=== PATIENT | male | born 1950 | race Caucasian/White ===

== ENCOUNTER 2020-02-06 17:41 | Emergency (ER) | payer MEDICARE, SELFPAY ==
--- NOTE | ~2020-02-06 | XR_ITS ---
XR chest 2V 02/06/2020 18:45 Indication: Chest pain Procedure: 2 view chest Comparison: 04/06/2018 Findings: Heart size is upper normal. Prominent left cardiophrenic angle fat pad. No focal air space disease, pulmonary edema, pleural effusion or suspected pneumothorax. Impression: 1: No acute cardiopulmonary disease. Reviewed, dictated and finalized at location A. YARD WORKER Impression: 1: No acute cardiopulmonary disease.
--- NOTE | ~2020-02-06 | CT_ITS ---
EXAMINATION: CTA chest PE protocol DATE: 02/06/2020 19:31 SPECIAL NEEDS BUS DRIVER INDICATION: Elevated d-dimer. Chest pain. TECHNIQUE: Computed tomographic angiography (CTA) of the chest was performed with 100 mL Omnipaque-35 0 intravenous contrast. The dose-length product was 657.55 mGy-cm. Maximum intensity projection 3D-re constructions of the aorta and other arteries were constructed by the technologist on a separate work station. Automated exposure control and iterative reconstruction technique were employed. COMPARISON: Chest x-ray dated 02/06/2020. FINDINGS: No significant pleural or pericardial effusion. Heart size is normal. Severely atrophic lef t kidney. Study is technically adequate. There are filling defects in right upper lobe segmental pulm onary arteries, consistent with pulmonary embolism. Small thrombus burden. No thoracic lymphadenopath y. No significant pleural or pericardial effusion. Fatty infiltration of the liver. There are gallsto cecille. No endobronchial lesions. Bibasilar atelectasis. IMPRESSION: 1. Filling defects right upper lobe segmental pulmonary arteries, consistent with pulmonary embolism, small thrombus burden. 2: Cholelithiasis. 3: Bibasilar atelectasis. Reviewed, dictated and finalized at location A. IAL NEEDS BUS DRIVER IMPRESSION: 1. Filling defects right upper lobe segmental pulmonary arteries, consistent wi th pulmonary embolism, small thrombus burden. 2: Cholelithiasis. 3: Bibasilar atelectasis.
[2020-02-06 18:00] VITALS: BP 147/87; PULSE 69; RESP 16; TEMP 37.1; O2SAT 97
--- NOTE | 2020-02-06 18:06 | ECG_ITS ---
Measurements Intervals [place] Rate: 67 P: 42 MS: 186 QRS: -42 QRSD: 111 T: 18 QT: 392 QTc: 415 Interpretive Statements SINUS RHYTHM LEFT AXIS DEVIATION INTRAVENTRICULAR CONDUCTION DELAY POOR R WAVE PROGRESSION, ANTERIOR LEADS BORDERLINE T WAVE ABNORMALITY- INFERIOR LEADS BASELINE ARTIFACT- I, II, AVR, AVL, V4-V6 BORDERLINE ECG Electronically Signed On 02-07-2020 14:20:56 INSTRUCTOR ADJUNCT SURGICAL TECHNICIAN by Harlan FATIMA
[2020-02-06 18:31] LABS: Basophils Absolute Auto 0.03 K/mm3 (0.00-0.10); Basophils Percent Auto 0.4 % (0.0-1.0); Eosinophils Absolute Auto 0.12 K/mm3 (0.02-0.50); Eosinophils Percent Auto 1.4 % (1.0-6.0); Hematocrit 42.3 % (37.0-46.0); Hemoglobin 14.2 g/dL (12.4-15.3); Immature Granulocyte Absolute 0.03 K/mm3 (0.00-0.00); Immature Granulocyte Percent A 0.4 % (0.0-0.0); Lymphocytes Absolute Auto 1.86 K/mm3 (1.10-4.50); Lymphocytes Percent Auto 21.9 % (18.0-42.0); Mean Corpuscular HGB Conc 33.6 g/dL (32.0-36.0); Mean Corpuscular Hemoglobin 30.9 pg (27.0-31.0); Mean Corpuscular Volume 92.2 fL (78.0-102.0); Mean Platelet Volume 9.6 fl (8.7-11.0); Monocytes Absolute Auto 0.89 K/mm3 (0.10-0.90); Monocytes Percent Auto 10.5 % (2.0-11.0); Neutrophils Absolute Auto 5.6 K/mm3 (1.7-7.2); Neutrophils Percent Auto 65.4 % (50.0-70.0); Platelet Count Result 207 K/mm3 (150-420); Red Blood Count 4.59 M/mm3 (4.70-6.10); Red Cell Distribution Width 12.2 % (11.6-14.4); White Blood Count 8.5 K/mm3 (4.8-10.8)
[2020-02-06 18:49] LABS: Alanine Aminotransferase 59 U/L (16-63); Albumin Level 3.8 g/dL (3.4-5.0); Alkaline Phosphatase 53 U/L (46-116); Anion Gap 6 mmol/L (8-16); Aspartate Amino Transferase 23 U/L (15-37); Bilirubin,Total 0.3 mg/dL (0.00-1.00); Blood Urea Nitrogen 32 mg/dL (7-18); Calcium 9.3 mg/dL (8.5-10.1); Carbon Dioxide 27 mmol/L (21-32); Chloride 100 mmol/L (98-108); Estimated Glomerular Filt Rate 38; Glucose 130 mg/dL (70-99); Osmolality Calculated 284 mOsm/kg (285-295); Potassium 3.7 mmol/L (3.5-5.1); Sodium 133 mmol/L (136-145); Total Protein 7.3 g/dL (6.4-8.2); Troponin I 8.7 ng/L (0.00-60.4)
[2020-02-06 18:52] LABS: BNP 5.6 pg/mL (0-100)
[2020-02-06 18:53] LABS: D Dimer 2.07 mg/L (0.19-0.50)
[2020-02-06 19:04] LABS: SARS-CoV-2 Ag Negative (Negative)
--- NOTE | 2020-02-06 21:02 | ED.CHESTPAIN ---
HPI - Chest Pain General Source: patient and family Mode of arrival: ambulatory Limitations: no limitations History of Present Illness HPI narrative: Patient complains of chest tightness, mild chest pain for the past 24 hours, ongoing, not known to be associated with any known causes. MD complaint: chest heaviness Timing of current episode: constant and still present Pain location: parasternal Pain radiation: none Severity: mild Quality: tightness and heaviness Relieving factors: nothing Exacerbating factors: nothing Risk Factors Coronary artery disease risk factors: none (age) Thoracic aortic dissection risk factors: none Related Data Home Medications Medication Instructions Recorded Confirmed lancets 33 gauge #100 each 03/07/19 02/06/20 Allergies Allergy/AdvReac Type Severity Reaction Status Date / Time No Known Allergies Allergy Unverified 04/06/18 06:48 Review of Systems Eyes: Eyes: Reports no additional eye complaints ENT: Reports system reviewed and no additional complaints, except as documented Cardiovascular: Cardiovascular: Reports no additional cardiovascular complaints Respiratory: Respiratory: Reports no additional respiratory complaints Gastrointestinal: Gastrointestinal: Reports no additional gastrointestinal complaints Genitourinary: Genitourinary: Reports no additional male genitourinary complaints Musculoskeletal: Musculoskeletal: Reports no additional musculoskeletal complaints Integumentary/Breasts: Skin/Breast: Reports system reviewed and no additional complaints, except as docu Neurologic: Reports system reviewed and no additional complaints, except as documented Psychiatric: Psychiatric: Reports no additional psychiatric complaints Endocrine: Endocrine: Reports no additional endocrine complaints Hematologic/Lymphatic: Hematologic/Lymphatic: Reports no additional hematologic/lymphatic complaints Allergic/Immunologic: Allergic/Immunologic: Reports no additional allergic/immunologic complaints REPLACED BY [facility] Past Medical History Medical History Renal calculi Surgical History Surgical History No significant past surgical history Family History Family History Father Patient's father is in good health Grandparent Family history of malignant neoplasm, Onset Age: 55 Family history of coronary artery disease, Onset Age: 80 Family history of malignant neoplasm of kidney, Onset Age: 80 Mother Family history of malignant neoplasm of kidney, Onset Age: 60 Social History Social History Smoking status: Never smoker Second hand tobacco smoke exposure: No Alcohol intake: current Exam Const: General: cooperative and healthy appearing Nutritional Appearance: average body habitus Orientation/consciousness: oriented to person, oriented to place and oriented to time Limitations: no limitations HENMT: Head: normal to inspection and normocephalic Ears: hearing grossly normal bilaterally and TM's normal bilaterally General nose exam: Normal external nose present Face and sinus: normal facial exam Mouth: Yes Normal oral and palatal mucosa present and Yes oropharynx normal Throat: posterior oropharynx normal Eyes: General: appearance normal, both eyes and all related structures Alignment and Position: alignment normal Eyelids: eyelids normal Conjunctivae: conjunctivae normal Sclera: sclerae normal Neck: Neck: normal visual inspection Lymphatic: no lymphadenopathy noted Chest: Chest palpation & inspection: normal inspection of the chest Resp: Effort & Inspection: normal respiratory effort and able to speak in complete sentences Auscultation: clear to auscultation bilaterally Cardio: Rate: regular rate Rhythm: regular rhythm GI: Inspection: normal t
[2020-02-06] MEDS: SODIUM CHLORIDE 0.9% IV 1,000 ML 999 ML (21:10)
[2020-02-06] MEDS: APIXABAN 2.5 MG TABLET 10 MG PO (21:21)
[2020-02-06] MEDS: HYDROcodone/acetaminophen (*CRX) 5-325 MG TABLET 1 TAB PO (21:22)
[2020-02-06] MEDS: ENOXAPARIN 100 MG/ML SYRINGE SUB-Q (21:22)
[2020-02-06 21:55] VITALS: BP 150/73
== END 2020-02-06 21:55 | disposition home or self-care (01) ==
PROVIDERS: Emergency Provider Emergency Medicine; PCP Internal Medicine
DX: I26.99 Other pulmonary embolism without acute cor pulmonale (principal)
CPT/HCPCS: 36415; 71046; 71275; 80053; 83880; 84484; 85025; 85380; 87426; 93005; 96372; 99283; 99284; A9270; J1650; J7030; Q9965; Q9967

== ENCOUNTER 2020-02-09 14:02 | Outpatient (CLI) | payer MEDICARE, SELFPAY ==
--- NOTE | ~2020-02-09 | US_ITS ---
EXAMINATION: US venous doppler LE EXAM DATE: 02/09/2020 14:38 INDICATION: Pulmonary embolism. On blood thinners. TECHNIQUE: Multiple grayscale, color flow and Doppler images of the lower extremity deep venous syste ms bilaterally were obtained and reviewed. There is no prior study for comparison. FINDINGS: Right side: The right common femoral, femoral and profunda veins demonstrate normal color flow, respi ratory variation, augmentation and compressibility. Compressibility, color flow confirmed within the right popliteal, posterior tibial, peroneal, and greater saphenous veins. Small sized Hendricks's cyst at 5.3 x 1.3 x 2.5 cm. Left side: The left common femoral, femoral and profunda veins demonstrate normal color flow, respira tory variation, augmentation and compressibility. Compressibility, color flow confirmed within the l eft popliteal, posterior tibial, peroneal, and greater saphenous veins. Small to moderate-sized Bake r's cyst at 4.9 x 1.5 x 3.6 cm. IMPRESSION: 1. No lower extremity deep venous thrombosis bilaterally. 2. Bilateral Hendricks's cysts. Reviewed, dictated and finalized at location B. ERY/ORDNANCE OFFICER
== END 2020-02-09 14:03 | disposition home or self-care (01) ==
PROVIDERS: PCP Internal Medicine; Visit Provider Emergency Medicine
DX: I26.99 Other pulmonary embolism without acute cor pulmonale (principal)
CPT/HCPCS: 93970

== ENCOUNTER → 2020-03-20 01:13 | Outpatient (CLI) | payer MEDICARE, SELFPAY ==
[2020-03-20 20:39] LABS: SARS-CoV-2 RNA PCR Negative
== END ==
PROVIDERS: PCP Internal Medicine; Visit Provider Internal Medicine Gastroenterology
DX: Z01.812 Encounter for preprocedural laboratory examination (principal); Z20.822 Contact with and (suspected) exposure to COVID-19
CPT/HCPCS: C9803; U0003; U0005

== ENCOUNTER 2020-03-23 02:09 | Day surgery (SDC) | payer MEDICARE, SELFPAY ==
[2020-03-10 08:22] VITALS: BMI 32.5
--- NOTE | 2020-03-11 13:30 | SUR.PREOP ---
Fax sent to Dr Arevalo regarding Eliquis. Orders for Lovenox injection transition while off Eliquis okay per Dr Arevalo. Verbal orders from Dr Ling for Lovenox placed in ambulatory orders.
[2020-03-23 10:43] VITALS: BP 135/73; PULSE 66; RESP 18; TEMP 36.2; O2SAT 98
[2020-03-23] MEDS: LACTATED RINGERS 1,000 ML 150 ML IV CONT (10:47)
[2020-03-23 10:51] LABS: Glucose Point of Care 180 (65-105)
--- NOTE | 2020-03-23 10:54 | WPDANESEPPF ---
Anes - Initial Pre Proc Eval Procedure: Operation Date: 03/23/20 11:30 Proposed Procedures p Screening Colonoscopy - Inder Roberson MD Date/Time: 03/23/20 10:54 Surgeon: Inder Roberson MD Pre Op Diagnosis: Personal Hx of Colon Polyps Patient Data Age: 69 Gender: M Height: 5 ft 11 in Weight: 103.9 kg Last Vital Signs Temp 36.2 C L 03/23/20 10:43 Pulse 66 03/23/20 10:43 Resp 18 03/23/20 10:43 BP 135/73 03/23/20 10:43 Pulse Ox 98 03/23/20 10:43 Allergies Allergy/AdvReac Type Severity Reaction Status Date / Time No Known Allergies Allergy Unverified 03/23/20 10:30 Home Medications Medication Instructions Recorded Confirmed Type lancets 33 gauge #100 each 03/07/19 02/16/20 History fluoxetine 10 mg capsule 10 mg PO DAILY #90 cap 05/09/19 03/23/20 Rx metformin 500 mg tablet 500 mg PO BID #180 tablet 05/09/19 03/23/20 Rx blood sugar diagnostic #100 each 07/15/19 02/16/20 Rx benazepril 20 mg tablet See Rx Instructions .ROUTE 01/12/20 03/23/20 Rx .COMPLEX #90 tablet hydrochlorothiazide 25 mg tablet See Rx Instructions .ROUTE 02/25/20 03/23/20 Rx .COMPLEX #90 tablet pravastatin 10 mg tablet See Rx Instructions .ROUTE 02/26/20 03/23/20 Rx .COMPLEX #90 tablet apixaban 5 mg tablet 5 mg PO BID #180 tablet 03/01/20 03/23/20 Rx amlodipine 20 mg PO DAILY 03/10/20 03/23/20 History enoxaparin [Lovenox] 100 mg SUBCUT Q12H #4 ml 03/11/20 Rx levothyroxine 50 mcg tablet See Rx Instructions .ROUTE 03/15/20 03/23/20 Rx .COMPLEX #90 tablet Laboratory Tests 03/23/20 10:45 POC Capillary Glucose 180 mg/dl H mg/dl (65-105) Patient hx anesthesia problems: none Family hx anesthesia problems: none PMFSH Past Medical History Medical History Renal calculi Surgical History Surgical History No significant past surgical history Family History Family History Father Patient's father is in good health Grandparent Family history of malignant neoplasm, Onset Age: 55 Family history of coronary artery disease, Onset Age: 80 Family history of malignant neoplasm of kidney, Onset Age: 80 Mother Family history of malignant neoplasm of kidney, Onset Age: 60 Social History Social History Smoking packs per day: 0.5 Smoking cigarettes per day: 10.0 Years smoked: 20 Smoking pack-years: 10.00 Smoking status: Former smoker Tobacco type: cigarettes Second hand tobacco smoke exposure: No Alcohol intake: current Drinks per week: 6 Substance use type: does not use Living arrangements: with family Spiritual care concerns: No Anes - Eval Final PreProcedure Day of Procedure 03/23/20 10:54 Patient weight: obese Heart: regular rate and rhythm Lungs: clear to auscultation Airway: Mallampati scale class II Neurological: alert and oriented Last oral intake: >/= 8 hours ASA classification: III Emergent: no Anesthetic plan: proceed Anesthesia type and monitoring: general GIVS and standard monitoring Informed Consent: The patient's anesthetic plan and its attendant risks and benefits were discussed with the patient/family/POA. Questions were solicited and answers provided to the satisfaction of the patient/family/POA.
--- NOTE | 2020-03-23 12:13 | PM.HPGS ---
History of Present Illness History of Present Illness Consent: Risks, benefits, and alternatives have been discussed and questions answered. Patient agrees to proceed with procedure. Chief complaint: Personal Hx of Colon Polyps Narrative: Sanket Zelaya is a 69 year old male with colon polyps 6 years ago, PE on eliquis but bridge with lovenox last 2 days Review of Systems Constitutional: Constitutional: Denies headache(s) and Denies weakness Eyes: Eyes: Denies blurry vision ENT: Reports Normal hearing present, Denies headache(s) and Denies neck pain Cardiovascular: Cardiovascular: Denies chest pain and Denies dyspnea Respiratory: Respiratory: Denies dyspnea Gastrointestinal: Gastrointestinal: Reports no additional gastrointestinal complaints Genitourinary: Genitourinary: Denies dysuria Musculoskeletal: Musculoskeletal: Denies neck pain Integumentary/Breasts: Skin/Breast: Denies dry skin Neurologic: Reports Normal hearing present, Denies headache(s) and Denies weakness Psychiatric: Psychiatric: Denies anxiety Endocrine: Endocrine: Denies change in body appearance Hematologic/Lymphatic: Hematologic/Lymphatic: Denies easy bleeding Allergic/Immunologic: Allergic/Immunologic: Denies urticaria PMFSH Past Medical History Medical History Renal calculi Surgical History Surgical History No significant past surgical history Family History Family History Father Patient's father is in good health Grandparent Family history of malignant neoplasm, Onset Age: 55 Family history of coronary artery disease, Onset Age: 80 Family history of malignant neoplasm of kidney, Onset Age: 80 Mother Family history of malignant neoplasm of kidney, Onset Age: 60 Social History Social History Smoking packs per day: 0.5 Smoking cigarettes per day: 10.0 Years smoked: 20 Smoking pack-years: 10.00 Smoking status: Former smoker Tobacco type: cigarettes Second hand tobacco smoke exposure: No Alcohol intake: current Drinks per week: 6 Substance use type: does not use Living arrangements: with family Spiritual care concerns: No Meds Home Medications and Allergies Home Medications Medication Instructions Recorded Confirmed Type lancets 33 gauge #100 each 03/07/19 02/16/20 History fluoxetine 10 mg capsule 10 mg PO DAILY #90 cap 05/09/19 03/23/20 Rx metformin 500 mg tablet 500 mg PO BID #180 tablet 05/09/19 03/23/20 Rx blood sugar diagnostic #100 each 07/15/19 02/16/20 Rx benazepril 20 mg tablet See Rx Instructions .ROUTE 01/12/20 03/23/20 Rx .COMPLEX #90 tablet hydrochlorothiazide 25 mg tablet See Rx Instructions .ROUTE 02/25/20 03/23/20 Rx .COMPLEX #90 tablet pravastatin 10 mg tablet See Rx Instructions .ROUTE 02/26/20 03/23/20 Rx .COMPLEX #90 tablet apixaban 5 mg tablet 5 mg PO BID #180 tablet 03/01/20 03/23/20 Rx amlodipine 20 mg PO DAILY 03/10/20 03/23/20 History enoxaparin [Lovenox] 100 mg SUBCUT Q12H #4 ml 03/11/20 Rx levothyroxine 50 mcg tablet See Rx Instructions .ROUTE 03/15/20 03/23/20 Rx .COMPLEX #90 tablet Allergies Allergy/AdvReac Type Severity Reaction Status Date / Time No Known Allergies Allergy Unverified 03/23/20 10:30 Vital Signs Vital Signs - 24 hr 03/23/20 10:43 Temperature 97.1 F L Pulse Rate 66 Respiratory Rate 18 Blood Pressure 135/73 Pulse Oximetry 98 Exam Const: General: comfortable and no acute distress HENMT: General nose exam: Normal nares present Eyes: General: appearance normal, both eyes and all related structures Neck: Neck: no JVD Resp: Auscultation: clear to auscultation bilaterally Cardio: Rate: regular rate Rhythm: regular rhythm GI: Inspection: non-distended GI Palp
[2020-03-23 12:33] VITALS: BP 97/86; PULSE 69; RESP 24; O2SAT 97
[2020-03-23 12:43] VITALS: BP 103/66; PULSE 61; RESP 20; O2SAT 97
[2020-03-23 12:53] VITALS: BP 112/65; PULSE 58; RESP 20; O2SAT 96
== END 2020-03-23 13:12 | disposition home or self-care (01) ==
PROVIDERS: PCP Internal Medicine; Visit Provider Internal Medicine Gastroenterology
PROC: 0DJD8ZZ Inspection of Lower Intestinal Tract, Via Natural or Artificial Opening Endoscopic (ICD-10-PCS; CPT 45378; principal; 2020-03-23 11:30)
DX: Z12.11 Encounter for screening for malignant neoplasm of colon (principal); K57.30 Diverticulosis of large intestine without perforation or abscess without bleeding; K64.8 Other hemorrhoids; Z86.010 Personal history of colon polyps; Z86.711 Personal history of pulmonary embolism; Z79.02 Long term (current) use of antithrombotics/antiplatelets; Z87.442 Personal history of urinary calculi; Z80.51 Family history of malignant neoplasm of kidney; Z87.891 Personal history of nicotine dependence
CPT/HCPCS: G0105; 82948; C9803; J2704; J7120; U0003; U0005

== ENCOUNTER 2020-03-25 11:49 | Emergency (ER) | payer MEDICARE, SELFPAY ==
--- NOTE | ~2020-03-25 | CT_ITS ---
EXAMINATION: CTA chest PE protocol DATE: 03/25/2020 13:42 INDICATION: Low anterior chest pain. TECHNIQUE: Computed tomography angiography (CTA) of the chest was performed with 100 mL Omnipaque-350 intravenous contrast timed to evaluate the pulmonary arteries. Coronal maximum intensity projection 3D-reconstructions were created by the technologist. Automated exposure control and iterative reconst ruction technique were employed. The dose-length product was 871.42 mGy-cm. COMPARISON: Chest CT 02/06/2020 FINDINGS: There is mild atelectasis in the lower lobes. No pleural effusion. There is bilateral gynec omastia. The heart size is normal. There are coronary artery calcifications. No pericardial effusion. There is no pulmonary embolus. There is a small sliding hiatal hernia. There are gallstones in the g allbladder, which is normal in size. There is diffuse hepatic steatosis. There is mild chronic anteri or wedging of multiple thoracic vertebral bodies. IMPRESSION: 1. No pulmonary embolus. 2. Small sliding hiatal hernia. 3. Cholelithiasis. Reviewed, dictated and finalized at location A. CLERK
--- NOTE | 2020-03-25 12:10 | ECG_ITS ---
Measurements Intervals [place] Rate: 63 P: 79 IA: 197 QRS: 109 QRSD: 110 T: 9 QT: 401 QTc: 410 Interpretive Statements SINUS RHYTHM WITH SINUS ARRHYTHMIA RIGHT AXIS DEVIATION DELAYED PRECORDIAL R/S TRANSITION BORDERLINE T WAVE ABNORMALITY- INFERIOR LEADS BASELINE ARTIFACT- I, II, III, AVL, V4-V6 BORDERLINE ECG Electronically Signed On 03-25-2020 12:38:20 TELEGRAPH REPEATER INSTALLER by Harlan Johns D.O.
[2020-03-25 12:15] VITALS: BP 140/78; PULSE 63; RESP 20; TEMP 36.3; O2SAT 97
[2020-03-25 12:32] VITALS: RESP 20
[2020-03-25 12:42] LABS: Basophils Absolute Auto 0.03 K/mm3 (0.00-0.10); Basophils Percent Auto 0.4 % (0.0-1.0); Eosinophils Percent Auto 1.5 % (1.0-6.0); Hematocrit 39.9 % (37.0-46.0); Hemoglobin 13.6 g/dL (12.4-15.3); Immature Granulocyte Absolute 0.03 K/mm3 (0.00-0.00); Immature Granulocyte Percent A 0.4 % (0.0-0.0); Lymphocytes Absolute Auto 1.58 K/mm3 (1.10-4.50); Mean Corpuscular HGB Conc 34.1 g/dL (32.0-36.0); Mean Corpuscular Hemoglobin 30.7 pg (27.0-31.0); Mean Corpuscular Volume 90.1 fL (78.0-102.0); Mean Platelet Volume 10.2 fl (8.7-11.0); Monocytes Absolute Auto 0.67 K/mm3 (0.10-0.90); Monocytes Percent Auto 9.8 % (2.0-11.0); Neutrophils Absolute Auto 4.5 K/mm3 (1.7-7.2); Neutrophils Percent Auto 64.9 % (50.0-70.0); Platelet Count Result 195 K/mm3 (150-420); Red Blood Count 4.43 M/mm3 (4.70-6.10); Red Cell Distribution Width 12.1 % (11.6-14.4); White Blood Count 6.9 K/mm3 (4.8-10.8)
[2020-03-25 13:03] LABS: Alanine Aminotransferase 99 U/L (16-63); Albumin Level 3.7 g/dL (3.4-5.0); Alkaline Phosphatase 48 U/L (46-116); Anion Gap 11 mmol/L (8-16); Aspartate Amino Transferase 40 U/L (15-37); Bilirubin,Total 0.3 mg/dL (0.00-1.00); Blood Urea Nitrogen 25 mg/dL (7-18); Calcium 9.3 mg/dL (8.5-10.1); Carbon Dioxide 27 mmol/L (21-32); Chloride 100 mmol/L (98-108); Estimated CRCL calculation 67 ml/min; Estimated Glomerular Filt Rate > 60; Glucose 139 mg/dL (70-99); Osmolality Calculated 292 mOsm/kg (285-295); Sodium 138 mmol/L (136-145); Total Protein 6.8 g/dL (6.4-8.2)
[2020-03-25 13:05] LABS: Troponin I 6.7 ng/L (0.00-60.4)
--- NOTE | 2020-03-25 14:09 | ED.GENADULT ---
HPI - General Adult General Chief complaint: Unspecified Stated complaint: Possible PE doctor sent him over History of Present Illness HPI narrative: this is a 69-year-old gentleman presents after he discussed his symptoms with his primary care physician was told to present to the emergency department. Patient was having a cough for the last couple of days nonproductive and currently having bilateral lower rib in upper abdominal discomfort with some movement and deep inspiration cough is currently nonproductive with no fever chills and is having some slight shortness of breath otherwise there is no chest no fever chills no nausea vomiting no diarrhea constipation. Patient was diagnosed with a pulmonary embolism approximately 1 month ago and started on Eliquis, over the last couple of days the patient had a colonoscopy and Eliquis was on hold and was started on Lovenox, had a colonoscopy and then restarted his Eliquis, his primary care physician was concerned about another pulmonary embolism. Onset (ago): day(s) Location: abdomen Severity: mild Quality: aching Relieving factors: immobilization Exacerbating factors: movement Associated symptoms: shortness of breath Treatments prior to arrival: none Related Data Home Medications Medication Instructions Recorded Confirmed lancets 33 gauge #100 each 03/07/19 02/16/20 amlodipine 20 mg PO DAILY 03/10/20 03/23/20 benazepril 20 mg PO HS 03/25/20 03/25/20 fluoxetine 10 mg PO HS 03/25/20 03/25/20 hydrochlorothiazide 25 mg PO DAILY 03/25/20 03/25/20 levothyroxine 50 mcg PO DAILY 03/25/20 03/25/20 pravastatin 10 mg PO HS 03/25/20 03/25/20 Allergies Allergy/AdvReac Type Severity Reaction Status Date / Time No Known Allergies Allergy Unverified 03/25/20 12:35 Review of Systems Review of Systems: All systems reviewed & are unremarkable except as noted in HPI and below PMFSH Past Medical History Medical History Renal calculi Surgical History Surgical History No significant past surgical history Family History Family History Father Patient's father is in good health Grandparent Family history of malignant neoplasm, Onset Age: 55 Family history of coronary artery disease, Onset Age: 80 Family history of malignant neoplasm of kidney, Onset Age: 80 Mother Family history of malignant neoplasm of kidney, Onset Age: 60 Social History Social History Smoking packs per day: 0.5 Smoking cigarettes per day: 10.0 Years smoked: 20 Smoking pack-years: 10.00 Smoking status: Former smoker Tobacco type: cigarettes Second hand tobacco smoke exposure: No Alcohol intake: current Drinks per week: 6 Substance use type: does not use Gender identity (if verbalized by the patient): Male Spiritual care concerns: No Exam Const: General: cooperative, healthy appearing, comfortable and no acute distress HENMT: Head: normal to inspection General nose exam: Normal external nose present Mouth: Yes Normal oral and palatal mucosa present Eyes: General: appearance normal, both eyes and all related structures Eyelids: eyelids normal Conjunctivae: conjunctivae normal Sclera: sclerae normal Neck: Neck: normal visual inspection, full ROM, no lymphadenopathy and no meningeal signs Resp: Effort & Inspection: normal respiratory effort and able to speak in complete sentences Auscultation: clear to auscultation bilaterally Cardio: Jugular venous distension: no JVD Palpation: normal PMI Rhythm: regular rhythm GI: Inspection: normal to inspection Auscultation: normal bowel sounds Back/Spine/Pelvis: Back: no CVA tenderness Skin: General skin exam: normal color Neuro: General: oriented to person, oriented to place, oriented to
[2020-03-25 14:16] VITALS: BP 143/63; PULSE 60; RESP 20; O2SAT 96
== END 2020-03-25 14:25 | disposition home or self-care (01) ==
PROVIDERS: Emergency Provider Emergency Medicine; PCP Internal Medicine
DX: B34.9 Viral infection, unspecified (principal); Z87.891 Personal history of nicotine dependence
CPT/HCPCS: 36415; 71275; 80053; 84484; 85025; 93005; 99283; 99284; Q9967

== ENCOUNTER 2020-07-15 07:38 | Outpatient (CLI) | payer MEDICARE, SELFPAY ==
[2020-07-15 08:04] LABS: MALB Creatinine Ratio 11.6 mg/g (0-30); Microalbumin Urine Random < 13.0 mg/L
[2020-07-15 08:10] LABS: Hemoglobin A1C 7.9 % (<5.7)
[2020-07-15 08:58] LABS: Alanine Aminotransferase 80 U/L (16-63); Albumin Level 3.7 g/dL (3.4-5.0); Alkaline Phosphatase 55 U/L (46-116); Anion Gap 10 mmol/L (8-16); Aspartate Amino Transferase 38 U/L (15-37); Bilirubin,Total 0.5 mg/dL (0.00-1.00); Blood Urea Nitrogen 19 mg/dL (7-18); Calcium 9.2 mg/dL (8.5-10.1); Carbon Dioxide 30 mmol/L (21-32); Chloride 100 mmol/L (98-108); Cholesterol 162 mg/dL (0-200); Estimated Glomerular Filt Rate > 60; Glucose 171 mg/dL (70-99); HDL Direct 36 mg/dL (40-60); LDL Cholesterol Calculated 85 mg/dL (<130); Osmolality Calculated 296 mOsm/kg (285-295); Potassium 4.4 mmol/L (3.5-5.1); Sodium 140 mmol/L (136-145); Total Protein 6.8 g/dL (6.4-8.2); Triglycerides 207 mg/dL (0-150)
== END 2020-07-15 07:39 | disposition home or self-care (01) ==
LOC: CHSLAB 07:41
PROVIDERS: PCP Internal Medicine; Visit Provider Internal Medicine
DX: I10 Essential (primary) hypertension (principal); E11.9 Type 2 diabetes mellitus without complications; E78.5 Hyperlipidemia, unspecified
CPT/HCPCS: 36415; 80053; 80061; 82043; 83036

== ENCOUNTER 2020-07-21 16:51 | Emergency (ER) | payer MEDICARE, SELFPAY ==
--- NOTE | ~2020-07-21 | XR_ITS ---
EXAMINATION: XR chest 1V portable DATE: 07/21/2020 17:49 INDICATION: One day of chest pain/tightness TECHNIQUE: frontal view of the chest was obtained. COMPARISON: Chest radiograph dated 02/06/[address] dated 03/25/2020 FINDINGS: Chronic mild atelectasis/scarring at the lingula and the left costophrenic angle and at the azygos es ophageal recess at the medial right lower lobe. No new airspace opacities, pulmonary edema, pleural e ffusion or pneumothorax. The cardiomediastinal silhouette is normal. Mild thoracic dextrocurvature. IMPRESSION: 1. No acute cardiopulmonary disease. Reviewed, dictated and finalized at location A.
[2020-07-21 17:35] VITALS: BP 130/77; PULSE 72; RESP 20; TEMP 36.9; O2SAT 97
--- NOTE | 2020-07-21 17:35 | ECG_ITS ---
Measurements Intervals [place] Rate: 67 P: 29 IA: 203 QRS: -38 QRSD: 109 T: 37 QT: 386 QTc: 410 Interpretive Statements SINUS RHYTHM LEFT AXIS DEVIATION BORDERLINE AV CONDUCTION DELAY BORDERLINE R WAVE PROGRESSION, ANTERIOR LEADS BASELINE ARTIFACT- II, III, AVR, AVF BORDERLINE ECG Electronically Signed On 07-21-2020 20:49:10 CDT by Harlan Johns D.O.
--- NOTE | 2020-07-21 17:39 | ED.GENADULT ---
HPI - General Adult General Chief complaint: Unspecified Stated complaint: pain in chest when cough Source: patient Mode of arrival: ambulatory Limitations: no limitations History of Present Illness HPI narrative: Sanket is a 69M with a PMH of hypothyroidism, congenital absence of left kidney, CAD, HTN, SOBEIDA, HLD, and DMII that came into the ED with CP of a couple days duration. He get pain when he leans forward, takes a deep breath or coughs. It is not worse with activity. No nausea, vomiting or lightheadedness. Related Data Home Medications Medication Instructions Recorded Confirmed lancets 33 gauge #100 each 03/07/19 07/21/20 amlodipine 20 mg PO HS 03/10/20 07/21/20 benazepril 20 mg PO HS 03/25/20 07/21/20 hydrochlorothiazide 25 mg PO DAILY 03/25/20 07/21/20 levothyroxine 50 mcg PO DAILY 03/25/20 07/21/20 fluoxetine 10 mg PO DAILY 07/21/20 07/21/20 metformin 500 mg PO BID 07/21/20 07/21/20 pravastatin 10 mg PO DAILY 07/21/20 07/21/20 Allergies Allergy/AdvReac Type Severity Reaction Status Date / Time No Known Allergies Allergy Verified 07/21/20 17:47 Review of Systems Constitutional: Constitutional: Reports no additional constitutional complaints Eyes: Eyes: Reports no additional eye complaints ENT: Reports system reviewed and no additional complaints, except as documented Cardiovascular: Cardiovascular: Reports as per HPI Respiratory: Respiratory: Reports as per HPI Gastrointestinal: Gastrointestinal: Reports no additional gastrointestinal complaints Genitourinary: Genitourinary: Reports no additional male genitourinary complaints Musculoskeletal: Musculoskeletal: Reports no additional musculoskeletal complaints Integumentary/Breasts: Skin/Breast: Reports system reviewed and no additional complaints, except as docu Neurologic: Reports system reviewed and no additional complaints, except as documented Psychiatric: Psychiatric: Reports no additional psychiatric complaints Endocrine: Endocrine: Reports no additional endocrine complaints Hematologic/Lymphatic: Hematologic/Lymphatic: Reports no additional hematologic/lymphatic complaints Allergic/Immunologic: Allergic/Immunologic: Reports no additional allergic/immunologic complaints [facility] Past Medical History Medical History Renal calculi Surgical History Surgical History No significant past surgical history Family History Family History Father Patient's father is in good health Grandparent Family history of malignant neoplasm, Onset Age: 55 Family history of coronary artery disease, Onset Age: 80 Family history of malignant neoplasm of kidney, Onset Age: 80 Mother Family history of malignant neoplasm of kidney, Onset Age: 60 Social History Social History Smoking packs per day: 0.5 Smoking cigarettes per day: 10.0 Years smoked: 20 Smoking pack-years: 10.00 Smoking status: Former smoker Tobacco type: cigarettes Second hand tobacco smoke exposure: No Alcohol intake: current Drinks per week: 6 Substance use type: does not use Gender identity (if verbalized by the patient): Female Spiritual care concerns: No Exam Const: General: cooperative, healthy appearing, comfortable and no acute distress HENMT: Head: normal to inspection Eyes: General: appearance normal, both eyes and all related structures Neck: Neck: normal visual inspection and full ROM Chest: Chest palpation & inspection: normal inspection of the chest Other: Mild ttp lateral to the sternum bilaterally Resp: Effort & Inspection: normal respiratory effort and able to speak in complete sentences Auscultation: clear to auscultation bilaterally Cardio: Jugular venous distension: no JVD Rate: regula
[2020-07-21 17:45] VITALS: RESP 20
[2020-07-21 17:56] LABS: Basophils Absolute Auto 0.02 K/mm3 (0.00-0.10); Basophils Percent Auto 0.2 % (0.0-1.0); Eosinophils Absolute Auto 0.12 K/mm3 (0.02-0.50); Eosinophils Percent Auto 1.1 % (1.0-6.0); Hematocrit 41.2 % (37.0-46.0); Hemoglobin 13.8 g/dL (12.4-15.3); Immature Granulocyte Absolute 0.04 K/mm3 (0.00-0.00); Immature Granulocyte Percent A 0.4 % (0.0-0.0); Lymphocytes Absolute Auto 1.67 K/mm3 (1.10-4.50); Lymphocytes Percent Auto 15.8 % (18.0-42.0); Mean Corpuscular HGB Conc 33.5 g/dL (32.0-36.0); Mean Corpuscular Hemoglobin 30.6 pg (27.0-31.0); Mean Corpuscular Volume 91.4 fL (78.0-102.0); Mean Platelet Volume 9.7 fl (8.7-11.0); Monocytes Absolute Auto 0.83 K/mm3 (0.10-0.90); Monocytes Percent Auto 7.8 % (2.0-11.0); Neutrophils Absolute Auto 7.9 K/mm3 (1.7-7.2); Neutrophils Percent Auto 74.7 % (50.0-70.0); Platelet Count Result 209 K/mm3 (150-420); Red Blood Count 4.51 M/mm3 (4.70-6.10); Red Cell Distribution Width 12.2 % (11.6-14.4); White Blood Count 10.6 K/mm3 (4.8-10.8)
[2020-07-21] MEDS: ASPIRIN 81 MG CHEWABLE TABLET 324 MG PO (18:00)
[2020-07-21 18:05] LABS: Prothrombin Time 10.9 Seconds (9.50-12.10)
[2020-07-21 18:14] LABS: Alanine Aminotransferase 52 U/L (16-63); Albumin Level 3.7 g/dL (3.4-5.0); Alkaline Phosphatase 50 U/L (46-116); Anion Gap 11 mmol/L (8-16); Aspartate Amino Transferase 14 U/L (15-37); Bilirubin,Total 0.6 mg/dL (0.00-1.00); Blood Urea Nitrogen 25 mg/dL (7-18); Calcium 9.3 mg/dL (8.5-10.1); Carbon Dioxide 28 mmol/L (21-32); Chloride 98 mmol/L (98-108); Estimated CRCL calculation 59 ml/min; Estimated Glomerular Filt Rate 55; Glucose 125 mg/dL (70-99); NT Pro B Type Natriuretic Pept 34 pg/mL (0-125); Osmolality Calculated 289 mOsm/kg (285-295); Potassium 3.9 mmol/L (3.5-5.1); Sodium 137 mmol/L (136-145); Total Protein 7.3 g/dL (6.4-8.2)
[2020-07-21 18:30] LABS: Troponin I 4.3 ng/L (0.00-60.4)
[2020-07-21 18:45] VITALS: BP 112/88; PULSE 75; RESP 20; O2SAT 95
[2020-07-21 20:30] VITALS: BP 111/86; PULSE 74; RESP 20; O2SAT 94
[2020-07-21 21:05] LABS: Troponin I 5.2 ng/L (0.00-60.4)
[2020-07-21 21:48] VITALS: BP 113/82; PULSE 72; RESP 20; O2SAT 96
== END 2020-07-21 21:40 | disposition home or self-care (01) ==
PROVIDERS: Emergency Provider Family Medicine; PCP Internal Medicine
DX: M94.0 Chondrocostal junction syndrome [Tietze] (principal); I25.10 Atherosclerotic heart disease of native coronary artery without angina pectoris; I10 Essential (primary) hypertension; E78.5 Hyperlipidemia, unspecified
CPT/HCPCS: 36415; 71045; 80053; 83880; 84484; 85025; 85610; 93005; 99283; 99284; A9270

== ENCOUNTER 2020-11-19 08:36 | Outpatient (CLI) | payer MEDICARE, SELFPAY ==
--- NOTE | ~2020-11-19 | CT_ITS ---
EXAMINATION: CT abdomen pelvis wo/w con DATE: 11/19/2020 09:57 INDICATION: Gross hematuria. TECHNIQUE: Computed tomography (CT) of the abdomen and pelvis was performed without and with intraven ous contrast using a total of 130 mL Omnipaque-350 intravenous contrast with a double-bolus technique for simultaneous opacification of the renal parenchyma and renal collecting system. Automated exposu re control and iterative reconstruction technique were employed. The dose-length product was 2228.88 mGy-cm. COMPARISON: CT abdomen and pelvis 04/06/2018, CT chest 03/25/2020 FINDINGS: The visualized portions of the lung bases demonstrate mild atelectasis. No pleural effusion. The hear t size is normal. No pericardial effusion. There is a small sliding hiatal hernia. There is diffuse h epatic steatosis. There are gallstones in the gallbladder, which is normal in size. The spleen, pancr eas, and adrenal glands are normal. There is severe atrophy of left kidney. There are cysts in right kidney measuring up to 7 mm. There are 7 stones in right kidney measuring up to 6 mm. Right ureter is well opacified and is normal. The bladder is not well distended. The prostate is mildly enlarged. Th ere is diverticulosis of the colon without evidence of diverticulitis. There are no dilated loops of bowel. The appendix is normal. There are no pathologically enlarged lymph nodes. There is no free int raperitoneal fluid. There is prominent fat in left inguinal canal that may be a hernia. There is mild thoracolumbar spondylosis. IMPRESSION: 1. Nonobstructing right kidney stones. 2. Severe atrophy of left kidney. Reviewed, dictated and finalized at location A.
--- NOTE | ~2020-11-19 | XR_ITS ---
EXAMINATION: XR abdomen/kub 1V DATE: 11/19/2020 10:36 INDICATION: Gross hematuria. TECHNIQUE: A supine view of the abdomen on 2 radiographs was obtained. COMPARISON: CT abdomen and pelvis 11/19/2020 FINDINGS: There are no dilated loops of bowel. There is a gallstone in the gallbladder. There are marcial roximately 3 visible stones in right kidney measuring up to 6 mm. IMPRESSION: 1. Right kidney stones. Reviewed, dictated and finalized at location A. IMPRESSION: 1. Right kidney stones.
[2020-11-19 09:02] LABS: Estimated Glomerular Filt Rate 59
== END 2020-11-19 08:37 | disposition home or self-care (01) ==
LOC: CHSIMG 08:38
PROVIDERS: PCP Internal Medicine; Visit Provider Nurse Practitioner Adult Health
DX: R31.0 Gross hematuria (principal)
CPT/HCPCS: 74018; 74178; Q9967

== ENCOUNTER 2020-12-14 08:48 | Outpatient (CLI) | payer MEDICARE, SELFPAY ==
[2020-12-14 09:15] LABS: Partial Thromboplastin Time 28.2 SEC (23.90-30.70); Prothrombin Time 10.7 Seconds (9.50-12.10)
[2020-12-14 09:24] LABS: Anion Gap 8 mmol/L (8-16); Blood Urea Nitrogen 22 mg/dL (7-18); Calcium 8.9 mg/dL (8.5-10.1); Carbon Dioxide 31 mmol/L (21-32); Chloride 101 mmol/L (98-108); Estimated Glomerular Filt Rate 52; Glucose 178 mg/dL (70-99); Osmolality Calculated 297 mOsm/kg (285-295); Potassium 4.4 mmol/L (3.5-5.1); Sodium 140 mmol/L (136-145)
== END 2020-12-14 08:49 | disposition home or self-care (01) ==
LOC: CHSLAB 08:51
PROVIDERS: Anesthesiology; PCP Internal Medicine; Visit Provider Urology
DX: N20.0 Calculus of kidney (principal); E11.9 Type 2 diabetes mellitus without complications; R31.0 Gross hematuria; I26.99 Other pulmonary embolism without acute cor pulmonale
CPT/HCPCS: 36415; 80048; 85610; 85730; 87086

== ENCOUNTER 2020-12-24 01:11 | Day surgery (SDC) | payer MEDICARE, SELFPAY ==
[2020-12-13 10:06] VITALS: BMI 30.7
--- NOTE | 2020-12-13 10:20 | PC.NURSE ---
Report to the Outpatient Waiting Room, entrance under the green pavilion located off [facility], at time 30__ on date ____12/24/20___. OR Time: ___829 . - You and your visitor will be asked a series of questions to screen for COVID 19 for your protection. - A mask is required within the hospital. - Only one visitor is allowed at this time. Patient visitors will be guided where to wait when not with patient. Preoperative COVID Testing Requirements: No COVID Test needed if: (proof is required; if not received patient will have Rapid Test prior to entry) - Patient has received COVID Vaccine at least 14 days prior to procedure date or - Patient has positive COVID test result within last 90 days of surgery date. COVID Test needed if above criteria is not met If not COVID vaccinated a COVID test must be conducted within 72 hours of surgery and patient is asked to isolate self from time of testing until procedure. You will go to the [facility] for your COVID testing. The [employer] [facility] site is located at the corner of [address] [facility]. You will only be called if COVID results are positive and your surgeon may reschedule your elective surgery date. Patients may have clear liquids (water, carbonated beverages, clear teas, apple juice) until 3 hours prior to surgery with a maximum of 20 ounces. - No food from midnight until time of surgery - Infants may have breast milk until 4 hours before surgery, infant formula 6 hours prior to surgery. - Children will be allowed to drink immediately following surgery. If applicable, please bring a bottle or sippy cup to assist with drinking. Juice, water, soda, and popsicles are readily available. For infants on formula, please bring formula the day of surgery. Pacifiers are allowed. Take the following medications with a SIP of water the morning of surgery: ___LEVOTHYROXINE Medications to discontinue per physician HOLD ELIQUIS_2 DAYS PRE-OP, ALEVE 7 DAYS PRE-OP Date to take last dose___12/21/20-ELIQUIS Please no make-up, nail zimbabwean, hairspray, perfume, deodorant, or body powder the day of surgery. No jewelry (including any body piercings) or valuables the day of surgery, leave them at home. Please take a shower or bath the night before, or the morning of, surgery with an antibacterial soap. Wear comfortable, loose fitting clothing. Children are encouraged to wear pajamas. - Jewelry must be removed prior to entering the operating room. Rings and piercings that are not removed may be cut off. - The hospital will not accept responsibility for valuables. - Please leave all valuables, including medications, at home the day of surgery. If you are going home after surgery, a licensed driver's license reviewing officer must drive you home. - NO public transportation without another adult. - We recommend that an adult stay with you for 24 hours following discharge. - We also recommend that you do not drive, make important decision, drink alcoholic beverages, or take any drugs that were not prescribed by your health care provider for at least 24 hours after your discharge time. For Pediatric surgeries, we recommend two adults accompany the child home (only one inside the building at this time). Follow any additional instructions given to you from your surgeon. Telephone instructions given to ___PATIENT-JIM and asked if any additional questions and then verbalized understanding. Patient advised to call surgeon office or pre surgery nurse liaison [phone] if any additional questions.
--- NOTE | ~2020-12-24 | XR_ITS ---
XR abdomen/kub 1V 12/24/2020 06:40 Indication: Preop ESWL Procedure: KUB Comparison: 11/19/2020 Findings: There are right renal stones, largest in the lower pole measuringr 7.5 mm. There is a large calcified gallstone in the right upper abdomen. Bowel gas pattern nonobstructive. No acute osseous a bnormality. Impression: 1: Right nephrolithiasis. 2: Cholelithiasis. Reviewed, dictated and finalized at location A. 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 2: Cholelithiasis.
--- NOTE | 2020-12-24 09:04 | SUR.PREOP ---
AFTER DISCUSSION WITH DR. MORSE, PT AND SPOUSE OPT TO CANCEL SURGERY TODAY AND F/U IN OFFICE FOR CYSTO AND F/U Q6MO TO MONITOR STONE IN SINGLE KIDNEY
--- NOTE | 2020-12-24 09:10 | SUR.PREOP ---
0700: AFTER LENGTHY DISCUSSION WITH DR. MORSE, PT AND SPOUSE OPT TO CANCEL SURGERY TODAY AND F/U IN OFFICE FOR CYSTO AND CONT. F/U Q6MO TO MONITOR STONE SIZE IN SINGLE KIDNEY.
== END 2020-12-24 08:00 | disposition home or self-care (01) ==
PROVIDERS: PCP Internal Medicine; Visit Provider Urology
PROC: (CPT 50590; principal; 2020-12-24 08:30)
PROC: (CPT 52352; 2020-12-24 08:30)
DX: N20.0 Calculus of kidney (principal); Z53.8 Procedure and treatment not carried out for other reasons
CPT/HCPCS: 74018; 99211; A9270; G0463; J7030

== ENCOUNTER 2021-02-01 08:59 | Outpatient (CLI) | payer MEDICARE, SELFPAY ==
--- NOTE | ~2021-02-01 | XR_ITS ---
XR abdomen/kub 1V DATE: 02/01/2021 09:19 INDICATION: Right-sided kidney stone TECHNIQUE: AP projection, 2 views COMPARISON: 12/24/2020 KUB 12/01/2020 CT abdomen pelvis FINDINGS: Again noted are calcified gallstones. Persistent approximately 4 x 8 mm calcified calculus overlying the lower pole of right kidney. A coup le of very small additional calcified calculi are suggested overlying the upper pole and lower pole r ight kidney. The left kidney was demonstrated to be severely atrophic on 11/19/2020 CT abdomen pelvis examination. No left urinary tract calcification is evident. No visceromegaly is evident. The psoas shadows are intact. There is a prominent amount of fecal material in the colon but no evidence of bowel obstruction. There is mild rotatory levoscoliosis of the lumbar spine. Abdominal aortic calcification. IMPRESSION: Right nephrolithiasis Severe atrophy of the left kidney demonstrated on prior CT examination Reviewed, dictated and finalized at Location A. Reviewed, dictated and finalized at location B. 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
== END 2021-02-01 09:00 | disposition home or self-care (01) ==
LOC: CHSIMG 09:00
PROVIDERS: PCP Internal Medicine; Visit Provider Urology
DX: N20.0 Calculus of kidney (principal)
CPT/HCPCS: 74018

== ENCOUNTER 2021-06-21 15:30 | Outpatient (CLI) | payer MEDICARE, SELFPAY ==
[2021-06-21 16:38] LABS: SARS-CoV-2 RNA PCR Negative (Negative)
== END 2021-06-21 15:31 | disposition home or self-care (01) ==
PROVIDERS: PCP Family Medicine; Visit Provider Family Medicine
DX: R68.89 Other general symptoms and signs (principal); Z20.822 Contact with and (suspected) exposure to COVID-19
CPT/HCPCS: C9803; U0003; U0005

== ENCOUNTER 2021-06-25 09:41 | Outpatient (CLI) | payer MEDICARE, SELFPAY ==
[2021-06-25 10:23] LABS: Cholesterol 165 mg/dL (0-200); HDL Direct 35 mg/dL (40-60); LDL Cholesterol Calculated 88 mg/dL (<130); Triglycerides 208 mg/dL (0-150)
[2021-06-25 11:15] LABS: Thyroid Stimulating Hormone Reflex 2.17 u/IU/mL (0.36-3.74)
== END 2021-06-25 09:42 | disposition home or self-care (01) ==
LOC: CHSLAB 09:43
PROVIDERS: PCP Family Medicine; Visit Provider Family Medicine
DX: E03.9 Hypothyroidism, unspecified (principal); E78.2 Mixed hyperlipidemia; E11.9 Type 2 diabetes mellitus without complications
CPT/HCPCS: 36415; 80061; 84443

== ENCOUNTER 2021-09-08 14:42 | Outpatient (CLI) | payer MEDICARE, SELFPAY ==
--- NOTE | ~2021-09-08 | XR_ITS ---
XR abdomen/kub 1V 09/08/2021 15:04 Indication: Follow-up renal stones Procedure: KUB Comparison: 02/01/2021 Findings: Stable stones in the lower pole of the right kidney. There is a 3 cm gallstone. There is jessy mbar spondylosis with levoscoliosis. No acute osseous abnormality. Impression: 1: Right nephrolithiasis. 2: Cholelithiasis. Reviewed, dictated and finalized at location A. Impression: 1: Right nephrolithiasis. 2: Cholelithiasis.
== END 2021-09-08 14:43 | disposition home or self-care (01) ==
PROVIDERS: PCP Family Medicine; Visit Provider Urology
DX: N20.0 Calculus of kidney (principal)
CPT/HCPCS: 74018

== ENCOUNTER 2021-12-01 08:00 | Outpatient (CLI) | payer MEDICARE, SELFPAY ==
[2021-12-01 08:30] LABS: Hemoglobin A1C 9.9 % (<5.7)
[2021-12-01 09:04] LABS: Alanine Aminotransferase 67 U/L (16-63); Albumin Level 3.8 g/dL (3.4-5.0); Alkaline Phosphatase 54 U/L (46-116); Anion Gap 8 mmol/L (8-16); Aspartate Amino Transferase 30 U/L (15-37); Bilirubin,Total 0.6 mg/dL (0.00-1.00); Blood Urea Nitrogen 23 mg/dL (7-18); Calcium 9.9 mg/dL (8.5-10.1); Carbon Dioxide 30 mmol/L (21-32); Chloride 97 mmol/L (98-108); Cholesterol 177 mg/dL (0-200); Estimated Glomerular Filt Rate 56; Glucose 289 mg/dL (70-99); HDL Direct 46 mg/dL (40-60); LDL Cholesterol Calculated 95 mg/dL (<130); Osmolality Calculated 294 mOsm/kg (285-295); Potassium 4.7 mmol/L (3.5-5.1); Sodium 135 mmol/L (136-145); Triglycerides 182 mg/dL (0-150)
== END 2021-12-01 08:01 | disposition home or self-care (01) ==
LOC: CHSLAB 08:02
PROVIDERS: PCP Family Medicine; Visit Provider Family Medicine
DX: E78.5 Hyperlipidemia, unspecified (principal); I10 Essential (primary) hypertension; R53.83 Other fatigue; Z12.5 Encounter for screening for malignant neoplasm of prostate; E11.9 Type 2 diabetes mellitus without complications
CPT/HCPCS: 36415; 80053; 80061; 83036; 84153; G0103

== ENCOUNTER 2021-12-06 14:32 | Outpatient (CLI) | payer MEDICARE, SELFPAY ==
--- NOTE | ~2021-12-06 | XR_ITS ---
EXAMINATION: XR chest 2V 12/06/2021 14:45 INDICATION: Dyspnea PROCEDURE: 2 view chest COMPARISON: 07/21/2020 FINDINGS: The lungs are clear. The cardiomediastinal silhouette is within normal limits. There are no pleural effusions. There is no pneumothorax suspected. IMPRESSION: 1: NO ACUTE CARDIOPULMONARY DISEASE. Reviewed, dictated and finalized at location B.
== END 2021-12-06 14:33 | disposition home or self-care (01) ==
LOC: CHSIMG 14:34
PROVIDERS: PCP Family Medicine; Visit Provider Family Medicine
DX: J39.8 Other specified diseases of upper respiratory tract (principal)
CPT/HCPCS: 71046

== ENCOUNTER 2021-12-30 12:56 | Outpatient (CLI) | payer MEDICARE, SELFPAY ==
--- NOTE | 2022-01-09 14:31 | WPDPFTINT ---
PFT Procedure Performed PFT Procedure Performed Spirometry with Pre/Post Bronchodilator Plethysmography (Lung Vol) Diffusing Cap (DLCO) Flow Vol Loop PFT Interpretation DOS: 12/30/2021 REQUESTING: Dr Kavin Pacheco REASON FOR TESTING: dyspnea PULMONARY FUNCTION TESTS Results are reliable and reproducible. Spirometry: pre bronchodilator FEV1 3.22 L, 95% predicted. Pre bronchodilator FVC is 4.21 L, 96% predicted. FEV1: FVC 76%, normal. After bronchodilator administration there is a 3% increase in the FVC and a 3% increase in the FEV1. FEV1: FVC 76%. Lung volumes: total lung capacity 6.94 L, 100% predicted. Residual volume 2.52 L, 94%. RV/TLC is 36%, normal. Airway resistance 144%. Diffusion: DLCO 26.4, 109% predicted, normal. DLCO/VA 4.5 L, 125% predicted, normal. Flow volume loop: Normal. IMPRESSION: This pulmonary function test with bronchodilator shows normal spirometry without change after bronchodilator, normal lung volumes and normal diffusion. Gilda Sousa MD
== END 2021-12-30 12:57 | disposition home or self-care (01) ==
LOC: CHSCARD 13:00
PROVIDERS: PCP Family Medicine; Visit Provider Family Medicine
DX: R06.00 Dyspnea, unspecified (principal)
CPT/HCPCS: 94060; 94726; 94729

== ENCOUNTER 2022-01-19 12:11 | Outpatient (CLI) | payer MEDICARE, SELFPAY ==
--- NOTE | ~2022-01-19 | XR_ITS ---
XR ankle LT min 3V DATE: 01/19/2022 12:37 INDICATION: Left subtalar arthritis, peroneal tendinitis TECHNIQUE: 3 views of left ankle COMPARISON: None FINDINGS: There is lateral soft tissue swelling. Mild tibiotalar osteoarthritis. There is some calcification at the distal Achilles tendon. There is mild plantar calcaneal enthesopat hy. There is chronic ossicles at the dorsal talonavicular area. No recent fracture or dislocation of the ankle or disruption of the ankle mortise is detected. IMPRESSION: Lateral soft tissue swelling Mild tibiotalar osteoarthritis Plantar calcaneal enthesopathy Distal Achilles tendon calcification Reviewed, dictated and finalized at location B. 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
--- NOTE | ~2022-01-19 | XR_ITS ---
XR foot LT 2V DATE: 01/19/2022 12:37 INDICATION: Left subtalar arthritis, peroneal tendinitis TECHNIQUE: AP and lateral views of left foot COMPARISON: None FINDINGS: Mild distal Achilles tendon calcification. Mild plantar calcaneal enthesopathy. Mild tibiotalar osteoarthritis. There are chronic bony ossicles at the dorsal talonavicular area. Os tibiale externum, normal variant. Mild hallux valgus and bunion deformity. Mild osteoarthritis at the first metatarsophalangeal joint. No fracture or dislocation, periosteal reaction or bone destruction. No erosive change. IMPRESSION: Mild distal Achilles tendon calcification and mild plantar calcaneal enthesopathy Mild hallux valgus and bunion deformity Mild osteoarthritis at first metatarsophalangeal joint Reviewed, dictated and finalized at location B. 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
== END 2022-01-19 12:12 | disposition home or self-care (01) ==
LOC: CHSIMG 12:13
PROVIDERS: PCP Family Medicine; Visit Provider Student in an Organized Health Care Education/Training Program
DX: M13.872 Other specified arthritis, left ankle and foot (principal)
CPT/HCPCS: 73610; 73620

== ENCOUNTER 2022-01-21 10:03 | Outpatient (CLI) | payer MEDICARE, SELFPAY ==
--- NOTE | ~2022-01-21 | MR_ITS ---
EXAMINATION: MR ankle LT wo con DATE: 01/21/2022 14:19 INDICATION: Left ankle pain TECHNIQUE: Magnetic resonance imaging (MRI) of the left ankle was performed without intravenous contr ast. Sequences included sagittal, coronal, and axial proton-density weighted fast spin echo without a nd with fat saturation. COMPARISON: None. FINDINGS: Medial ankle ligaments: Deep and superficial deltoid ligaments as well as the spring ligament are normal. Lateral ankle ligaments: The anterior and posterior inferior tibiofibular ligaments are normal. The anterior talofibular, calc aneofibular and posterior talofibular ligaments are normal. Tendons: Minimal enthesopathic ossification at the distal aspect of the otherwise normal Achilles tendon. Martell anam tenosynovitis. The peroneus longus tendon is normal. Tendinopathy and high-grade partial if not complete tear of the peroneus brevis at the level of the distal tip of the lateral malleolus. The tib ialis anterior and extensor hallucis longus and extensor digitorum longus tendons are normal. Type II os tibiale externum navicular insertion of the normal tibialis posterior tendon. The flexor digitoru m longus and flexor hallucis longus tendons are normal. Plantar fascia: Moderate-sized plantar calcaneal spur and mild enthesopathy at the calcaneal origin of the proximal p lantar aponeurosis. No significant surrounding soft tissue or marrow edema to suggest acute plantar f asciitis. Bones/other: Bone alignment is normal. No fracture or pathologic marrow replacing process. Moderate osteoarthritis at the talonavicular joint with high-grade chondromalacia with underlying cortical irregularity and edema-like signal change along the superolateral aspect of the head of the talus and moderate-sized d orsal marginal osteophytes. Additional mild osteoarthritis at the second-fourth tarsal metatarsal noelle nts. Fluid: Physiologic amount fluid in the joint space. There is soft tissue edema at the lateral aspect of the ankle and hindfoot. IMPRESSION: 1. Prominent peroneal tenosynovitis with tendinopathy and high-grade partial if not complete tear of the peroneus brevis tendon at the level of the distal tip at the lateral malleolus. 2. 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 3. Chronic mild Achilles and moderate plantar calcaneal enthesopathy. Reviewed, dictated and finalized at location A. RVISOR PRESS ROOM IMPRESSION: 1. Prominent peroneal tenosynovitis with tendinopathy and high-grade partial if not complete tear of the peroneus brevis tendon at the level of the distal tip at the lateral malleolus. 2. 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 3. Chronic mild Achilles and moderate plantar calcaneal enthesopathy.
== END 2022-01-21 10:04 | disposition home or self-care (01) ==
LOC: CHSIMG 10:05
PROVIDERS: PCP Family Medicine; Visit Provider Student in an Organized Health Care Education/Training Program
DX: M25.572 Pain in left ankle and joints of left foot (principal); M76.72 Peroneal tendinitis, left leg
CPT/HCPCS: 73721

== ENCOUNTER 2022-03-06 12:18 | Outpatient (CLI) | payer MEDICARE, SELFPAY ==
--- NOTE | 2022-03-06 12:23 | ECHO_ITS ---
Patient Info Name: Sanket Zelaya Age: 71 years : 1950 Gender: Male Ht: 71 in Wt: 220 lbs BSA: 2.26 m2 HR: 59 bpm BP: 106 / 56 mmHg Technical Quality: Good Exam Date: 03/06/2022 1:27 PM Exam Location: [facility] Patient Status: Outpatient Admit Date: 03/06/2022 Staff Ordering Physician: Harlan Johns DO Card Filer: Kavin Gabriel RDCS, RT Attending Provider: Harlan Johns DO Referring Physician: Andreas HANCOCK; Exam Type: CA echo doppler color flow Study Info Indications R06.00 - Dyspnea, unspecified Complete two-dimensional, color flow and Doppler transthoracic echocardiogram is performed. Strain analysis performed. Summary 1. Complete two-dimensional, color flow and Doppler transthoracic echocardiogram is performed. 2. Left ventricular chamber dimension is normal. 3. Left ventricular systolic function is normal, estimated at 60-65%. 4. The left ventricular diastolic function is normal. 5. E/e' 6 is not elevated. 6. Global longitudinal strain is normal at -20.4%. 7. There is moderate aortic valve sclerosis. 8. There is trace aortic valve regurgitation. 9. There is mild mitral valve regurgitation. 10. There is trace tricuspid valve regurgitation. 11. No pulmonary hypertension, estimated pulmonary arterial systolic pressure is 32 mmHg. 12. There is trace pulmonic regurgitation. Left Ventricle E/e' 6 is not elevated. Global longitudinal strain is normal at -20.4%. Left ventricular chamber dimension is normal. Left ventricular systolic function is normal, estimated at 60-65%. The left ventricular diastolic function is normal. Right Ventricle Right ventricular systolic function is normal and with normal TAPSE 2.4 cm. Right ventricular chamber dimension is normal. Left Atria Left atrial chamber dimension is normal. Right Atria Right atrial chamber dimension is normal. Aortic Valve The aortic valve is trileaflet. There is moderate aortic valve sclerosis. There is no aortic valve stenosis. There is trace aortic valve regurgitation. Pulmonic Valve There is trace pulmonic regurgitation. Mitral Valve There is no mitral valve stenosis. There is mild mitral valve regurgitation. Tricuspid Valve There is trace tricuspid valve regurgitation. No pulmonary hypertension, estimated pulmonary arterial systolic pressure is 32 mmHg. Pericardium/Pleural There is no pericardial effusion. Inferior Vena Cava Normal inferior vena cava with >50% collapse upon inspiration consistent with normal right atrial pressure, 5 mmHg. Aorta The aortic root size at the sinus of Valsalva is normal. Left Ventricular Outflow Tract Name Value Normal LVOT 2D LVOT Diameter 2.0 cm LVOT Doppler LVOT Peak Velocity 139 cm/s LVOT Peak Gradient 8 mmHg LVOT Mean Gradient 4 mmHg LVOT VTI 26 cm LVOT VTI/AV VTI Ratio 0.8 LVOT Stroke Volume 86 ml Mitral Valve
== END 2022-03-06 12:19 | disposition home or self-care (01) ==
LOC: CHSCARD 12:19
PROVIDERS: PCP Family Medicine; Visit Provider Internal Medicine Cardiovascular Disease
DX: R06.09 Other forms of dyspnea (principal)
CPT/HCPCS: 93306

== ENCOUNTER 2022-03-13 11:40 | Outpatient (CLI) | payer MEDICARE, SELFPAY ==
[2022-03-13 20:11] LABS: Hemoglobin A1C 7.4 % (<5.7)
== END 2022-03-13 11:41 | disposition home or self-care (01) ==
LOC: ANHGOSHLAB 11:41
PROVIDERS: PCP Family Medicine; Visit Provider Family Medicine
DX: E11.9 Type 2 diabetes mellitus without complications (principal)
CPT/HCPCS: 36415; 83036

== ENCOUNTER 2022-06-15 11:37 | Outpatient (CLI) | payer MEDICARE, SELFPAY | END 2022-06-15 11:38 | disposition home or self-care (01) | LOC: ANHGOSHLAB 11:38 | PROVIDERS: PCP Family Medicine; Visit Provider Family Medicine | DX: E11.9 Type 2 diabetes mellitus without complications (principal) | CPT/HCPCS: 36415; 83036 ==

== ENCOUNTER 2022-10-26 07:51 | Outpatient (CLI) | payer MEDICARE, SELFPAY ==
[2022-10-26 08:12] LABS: Hemoglobin A1C 7.5 % (<5.7)
[2022-10-26 08:13] LABS: Creatinine Urine 179.58 mg/dL (40-278); MALB Creatinine Ratio 10.8 mg/g (0-30); Microalbumin Urine Random 19.4 mg/L
[2022-10-26 08:48] LABS: Alanine Aminotransferase 70 U/L (16-63); Albumin Level 3.8 g/dL (3.4-5.0); Alkaline Phosphatase 49 U/L (46-116); Anion Gap 7 mmol/L (8-16); Aspartate Amino Transferase 27 U/L (15-37); Bilirubin,Total 0.4 mg/dL (0.00-1.00); Blood Urea Nitrogen 29 mg/dL (7-18); Calcium 9.4 mg/dL (8.5-10.1); Carbon Dioxide 30 mmol/L (21-32); Chloride 102 mmol/L (98-108); Cholesterol 166 mg/dL (0-200); Estimated Glomerular Filt Rate > 60; Glucose 194 mg/dL (70-99); HDL Direct 40 mg/dL (40-60); LDL Cholesterol Calculated 93 mg/dL (<130); Osmolality Calculated 298 mOsm/kg (285-295); Potassium 4.5 mmol/L (3.5-5.1); Sodium 139 mmol/L (136-145); Total Protein 6.8 g/dL (6.4-8.2); Triglycerides 163 mg/dL (0-150)
[2022-10-26 08:50] LABS: Thyroid Stimulating Hormone Reflex 3.54 u/IU/mL (0.36-3.74)
== END 2022-10-26 07:52 | disposition home or self-care (01) ==
LOC: CHSLAB 07:52
PROVIDERS: PCP Family Medicine; Visit Provider Family Medicine
DX: Z12.5 Encounter for screening for malignant neoplasm of prostate (principal); E11.9 Type 2 diabetes mellitus without complications; Z13.29 Encounter for screening for other suspected endocrine disorder; Z13.220 Encounter for screening for lipoid disorders; Z13.228 Encounter for screening for other metabolic disorders
CPT/HCPCS: 36415; 80053; 80061; 82043; 83036; 84153; 84443; G0103

== ENCOUNTER 2023-02-15 15:29 | Outpatient (CLI) | payer MEDICARE, SELFPAY | END 2023-02-15 15:30 | disposition home or self-care (01) | LOC: ANHGOSHLAB 15:30 | PROVIDERS: PCP Family Medicine; Visit Provider Family Medicine | DX: E11.9 Type 2 diabetes mellitus without complications (principal) | CPT/HCPCS: 36415; 83036 ==

== ENCOUNTER 2023-03-12 10:52 | Outpatient (CLI) | payer MEDICARE, SELFPAY | END 2023-03-12 10:53 | disposition home or self-care (01) | LOC: ANHAUDASC 10:53 | PROVIDERS: PCP Family Medicine; Visit Provider Otolaryngology | DX: H90.3 Sensorineural hearing loss, bilateral (principal) | CPT/HCPCS: 92557; 92567 ==

== ENCOUNTER 2023-05-21 08:10 | Outpatient (CLI) | payer MEDICARE, SELFPAY ==
[2023-05-21 22:45] LABS: Hemoglobin A1C 6.3 % (<5.7)
== END 2023-05-21 08:11 | disposition home or self-care (01) ==
PROVIDERS: PCP Family Medicine; Visit Provider Family Medicine
DX: E11.9 Type 2 diabetes mellitus without complications (principal)
CPT/HCPCS: 36415; 83036

== ENCOUNTER 2023-12-12 09:27 | Outpatient (CLI) | payer MEDICARE, SELFPAY ==
[2023-12-12 10:19] LABS: Creatinine Urine 111.93 mg/dL (40-278); MALB Creatinine Ratio 11.6 mg/g (0-30); Microalbumin Urine Random < 13.0 mg/L
[2023-12-12 11:02] LABS: Alanine Aminotransferase 26 U/L (16-63); Albumin Level 3.8 g/dL (3.4-5.0); Alkaline Phosphatase 51 U/L (46-116); Anion Gap 9 mmol/L (4-12); Aspartate Amino Transferase 15 U/L (15-37); Bilirubin,Total 0.4 mg/dL (0.00-1.00); Blood Urea Nitrogen 28 mg/dL (7-18); Calcium 9.4 mg/dL (8.5-10.1); Carbon Dioxide 29 mmol/L (21-32); Chloride 102 mmol/L (98-108); Cholesterol 146 mg/dL (0-200); Estimated Glomerular Filt Rate 53; Glucose 143 mg/dL (70-99); HDL Direct 46 mg/dL (40-60); LDL Cholesterol Calculated 77 mg/dL (<130); Osmolality Calculated 297 mOsm/kg (285-295); Potassium 4.5 mmol/L (3.5-5.1); Prostate Specific Antigen 1.7 ng/mL (< OR = 4.0); Sodium 140 mmol/L (136-145); Total Protein 6.8 g/dL (6.4-8.2); Triglycerides 116 mg/dL (0-150)
[2023-12-12 11:05] LABS: Hemoglobin A1C 6.5 % (<5.7)
== END 2023-12-12 09:28 | disposition home or self-care (01) ==
LOC: CHSLAB 09:29
PROVIDERS: PCP Family Medicine; Visit Provider Family Medicine
DX: Z13.228 Encounter for screening for other metabolic disorders (principal); Z12.5 Encounter for screening for malignant neoplasm of prostate; Z13.220 Encounter for screening for lipoid disorders; E11.9 Type 2 diabetes mellitus without complications
CPT/HCPCS: 36415; 80053; 80061; 82043; 83036; 84153; G0103

== ENCOUNTER 2024-08-19 14:01 | Outpatient (CLI) | payer MEDICARE, SELFPAY ==
--- OUTSIDE RECORDS SUMMARY | 2024-08-19 14:08 | XMS_ITS | Clinical Summary ---
Author Organization [facility] Address [address] [place] [address] Care Team Providers Care Laboratory Operations Coordinator Name Role Phone Avelino Arevalo MD Primary Care Provider + [phone] Avelino Duran MD Unavailable Source Comments [facility],non-owned Affiliates and Associated Physician Practices is amultiple site organization consisting of ambulatory clinics and hospital sitesin [place], [place], [place] and [place]. This disclosure is being madepursuant to the Care Everywhere program and may not contain all information available regarding this patient. Last updated 17.[facility] Allergies No known active allergies Medications * Be aware that medications may not be up to date on this document. Alwaysverify current medications with the patient. ALPRAZolam (XANAX) 0.25 MG tablet Take 0.25 mg by mouth 3 times daily Active amLODIPine (NORVASC) 10 MG tablet Take 10 mg by mouth at bedtime 9 Active benazepril (LOTENSIN) 20 MG tablet Take 20 mg by mouth at bedtime 9 Active FLUoxetine (PROZAC) 20 MG capsule Take 10 mg by mouth at bedtime 8 Active hydroCHLOROthia zide (HYDRODIURIL) 25 MG tablet Take 1 tablet by mouth every 24 hours 3 Active pravastatin (PRAVACHOL) 10 MG tablet Take 10 mg by mouth at bedtime 8 Active metFORMIN (GLUCOPHAGE) 500 MG tablet Take 500 mg by mouth 2 times daily 9 Active ONETOUCH ULTRA TEST STRIPS test strip 9 Active TURMERIC PO Take 1 capsule by mouth Active Cholecalciferol (VITAMIN D3) 1000 units Take 1,000 Units by mouth Active neomycin-polymy aristides-dexameth (MAXITROL) ophthalmic ointment 9 Active HYDROcodone-sophie taminophen (NORCO) 10-325 MG tablet Take 0.5-1 tablets by mouth every 6 hours as needed for Pain 28 tablet 9 Active Additional Information Patient not taking.Reported on 05/17/2020 amLODIPine (NORVASC) 5 MG tablet Take 5 mg by mouth once daily 9 Active FLUoxetine (PROZAC) 10 MG capsule Take 10 mg by mouth once daily 9 Active meloxicam (MOBIC) 15 MG tablet Take 1 tablet by mouth once daily 90 tablet 3 9 Active Additional Information Patient not taking.Reported on 05/17/2020 levothyroxine (SYNTHROID) 50 MCG tablet Take 50 mcg by mouth once daily 1 Active Active Problems Problem Noted Date Diagnosed Date Presence of both artificial knee joints 05/22/19 21 Primary osteoarthritis of right knee 04/17/2018 Type 2 diabetes mellitus wit hout complication, without long-term current use of insulin 12/06/2016 Overview (07/09/2018): Overview: Overview: diet controlled, mild peripheral neuropathy, not treated, flat feet HbA1c 6.9 <-- 6.0 Last Assessment & Plan: --repeating a1c today Family History Medical History Relation Name Comments Cancer - Renal Mother Relation Name Status Comments Mother Social History Tobacco Use Types Packs/Day Years Used Date Smoking Tobacco: Former Cigarettes 0.5 20 1 989 - 2008 Smokeless Tobacco: Never Alcohol Use Standard Drinks/Week Comments No 0 (1 standard drink = 0.6 oz pur e alcohol) Sex and Gender Information Value Date Recorded Sex Assigned at Not on file Legal Sex Male 1:16 PM [employer] Gender Identity Not on file Sexual Orientation Not on file Last Filed Vital Signs Vital Sign Reading Time Taken Comments Blood Pressure 127/59 06/19/2018 7:25 AM CDT Pulse 73 06/19/2018 7:25 AM CDT Temperature 37.1 C (98.8 F) 06/19/2018 7:25 AM CDT Respiratory Rate 16 06/19/2018 7:25 AM CDT Oxygen Saturation 92% 06/19/2018 7:25 AM CDT Inhaled Oxygen Concentration - - Weight 102.1 kg (225 lb) 06/17/2018 8:15 AM CDT Height 180.3 cm (5' 11) 06/17/2018 8:15 AM CDT Body Mass Index 31.38 06/17/2018 8:15 AM CDT Plan of Treatment Health Maintenance Due Date Last Done Comments COLOGUARD (AGES 45-75) - COLON CA SCREENING 1950 COLON MONITORING 1950 COLONOSCOPY - COLON CA SCREENING 1950 CT COLONOGRAPHY - COLON CA SCREENING 1950 Colorectal Cancer Screening 1950 FIT - COLON CA SCREENING 1950 FLEX SIG - COLON CA SCREENING 1950 HEPATITIS C SCREENING 11/04/1968 DTAP/TDAP/TD VACCINES (1 - Tdap) 1969 PNEUMOCOCCAL VACCINE 50+ (1 of 1 - PCV) 2000 ZOSTER VACCINE (1 of 2) 2000 AAA SCREENING 11/10/2015 DIABETES-FOOT EXAM WITH MONOFILAMENT 07/09/2018 DIABETES-HGB A1C 11/16/2018 05/17/2018 DIABETES-SERUM CREATININE 06/18/2019 06/17/2018, 06/2018 COVID-19 VACCINE (1 - 2023- season) 2023 DEPRESSION SCREENING 02/13/2024 DIABETES - URINE PROTEIN SCREENING 02/13/2024 INFLUENZA VACCINE (#1) 2024 7, 12/20/2015, 10/28/2015, Additional history exists Respiratory Syncytial Virus (RSV) Vaccine Pt: or over 60 yrs (1 - 1-dose 75+ series) 2025 HEPATITIS B VACCINE Aged Out No longe r eligible based on patient's age to complete this topic HIB VACCINE Aged Out No longer eligi ble based on patient's age to complete this topic HPV VACCINE Aged Out No longer eligi ble based on patient's age to complete this topic MENINGOCOCCAL (Group B) VACCINE SHARED DECISION-MAKING Aged Out No longer eligible based on patient's age to complete this topic MENINGOCOCCAL GROUPS A/C/Y/W VACCINE Aged Out No longer eligible based on patient's age to complete this topic Medical Devices Implanted Type Area Media Planner Device Identifier Shelf Expiration Date Model / Serial / Lot Cmnt Bone Cblt 40gm Hvisc Strl Implanted:Qty: 1 on 06/17/2018 by Avelino Duran MD at [facility] Right: Knee [employer] 08/08/2019 [id number] / / [id number] Cmpnt Ptlr 31mm 1 Pg Wire Ascnt Ar[employer] Kn Implanted:Qty: 1 on 06/17/2018 by Avelino Duran MD at [facility] Right: Knee [employer] 05/14/2023 [id number] / / [id number] Tray Tib 75mm Kn Cocr I Beam Implanted:Qty: 1 on 06/17/2018 by Avelino Duran MD at [facility] Right: Knee [employer] 04/12/2028 [id number] / / [id number] Cmpnt Fem Kn Rt Cr Cmnt Prm Vngrd Intlk 67.5mm Implanted:Qty: 1 on 06/17/2018 by Avelino Duran MD at [facility] Right: Knee [employer] 04/25/2028 [id number] / / [id number] Brng [id number] Vngrd Arcm Kn Ant Stab Implanted:Qty: 1 on 06/17/2018 by Avelino Duran MD at [facility] Right: Knee [employer] 03/29/2023 [id number] / / [id number] Procedures Procedure Name Priority Date/Time Associated Diagnosis Comments BASIC METABOLIC PANEL (CALCIUM TOTAL) STAT 06/17/2018 8:04 AM CDT Preop examination HEMOGLOBIN A1C Routine 05/17/2018 1:59 PM CDT Preop examination from Last 3 Months or Most Recently Relevant to Health Maintenance Results * (ABNORMAL) BASIC METABOLIC PANEL (CALCIUM TOTAL) (06/17/2018 8:04 AM CDT) Glucose 121(H) 74 - 106 mg/dL 06/17/2018 8:27 AM CDT [facility] Sodium 139 136 - 145 mmol/L 06/17/2018 8:27 AM CDT [facility] Potassium 3.9 3.5 - 5.1 mmol/L 06/17/2018 8:27 AM CDT [facility] Chloride 105 98 - 107 mmol/L 06/17/2018 8:27 AM CDT [facility] CO2 25 23 - 31 mmol/L 06/17/2018 8:27 AM CDT [facility] Calcium 9.7 8.4 - 10.2 mg/dL 06/17/2018 8:27 AM T [facility] Anion Gap 9 8 - 16 mmol/L 06/17/2018 8:27 AM CDT [facility] BUN 22 8.4 - 25.7 mg/dL 06/17/2018 8:27 AM CDT [facility] Creatinine 0.95 0.73 - 1.18 mg/dL 06/17/2018 8:27 AM CDT [facility] eGFR by MDRD >60 >60 mL/min/1.7 3m2 06/17/2018 8:27 AM T [facility] eGFR by MDRD >60 >60 mL/min/1.7 3m2 06/17/2018 8:27 AM T [facility] Blood BLOOD SPECIMEN / Unknown Venipuncture / Unknown 06/17/2018 8:04 AM CDT 06/17/2018 8:06 AM CDT Narrative [facility] - 06/17/2018 8:27 AM CDT Attention clinician: BUN Reference Range has changed. us Melody Carson DO LAB - CHEMISTRY ORDERABLES Anushka ruiz Result [facility] [id number] [place] [address] * (ABNORMAL) HEMOGLOBIN A1C (05/17/2018 1:59 PM CDT) Hemoglobin A1c 7.0(H) 4.0 - 6.1 % 05/17/2018 2:31 PM CDT [facility] Estimated Average Glucose 154 mg/dL 05/17/2018 2:31 PM CDT [facility] Blood BLOOD SPECIMEN / Unknown Venipuncture / Unknown 05/17/2018 1:59 PM CDT 05/17/2018 2:13 PM CDT Narrative [facility] - 05/17/2018 2:31 PM CDT Attention clinician: Reference Range has changed. Lashaun Goetz [employer] LAB - CHEMISTRY OR DERABLES Final Result [facility] [address] [place] [address] from Last 3 Months or Most Recently Relevant to Health Maintenance Insurance [facility] MANAGED MEDICARE ADV Advance Directives * Full Code (Latest Code Status on File) Date Activated Date Inactivated Comments 06/17/2018 2:06 PM 06/19/2018 3:19 PM Care Teams Laboratory Operations Coordinator Relationship Specialty Start Date End Date Avelino Arevalo MD [address] [place] [address] PCP - General Internal Medicine 04/16/18 [place] [id number] [facility] [address] [place] [address] Orthopedic Surgery 04/16/18
[2024-08-19 16:06] LABS: Hematocrit 42.4 % (42.0-52.0); Hemoglobin 14.0 g/dL (14.0-18.0); Immature Granulocyte Percent A 0.7 % (0-0.5); Lymphocytes Absolute Auto 1.14 K/mm3 (0.9-3.2); Mean Corpuscular HGB Conc 33.0 g/dl (32-36); Mean Corpuscular Hemoglobin 30.2 pg (26-34); Mean Corpuscular Volume 91.4 fl (80-100); Nucleated Red Blood Cells Absolute Auto 0.000 K/mm3 (0.0-0.012); Nucleated Red Blood Cells Perc 0.0 % (0.0-0.2); Platelet Count Result 218 k/mm3 (150-375); Red Blood Count 4.64 M/mm3 (4.6-6.20); White Blood Count 10.1 K/mm3 (4.5-10.0)
[2024-08-19 16:15] LABS: Hemoglobin A1C 6.7 % (<5.7)
[2024-08-19 16:34] LABS: MALB Creatinine Ratio 8.2 mg/g (0-30)
[2024-08-19 19:48] LABS: Alanine Aminotransferase 19 U/L (6-50); Albumin Level 4.4 g/dL (3.5-5.1); Alkaline Phosphatase 41 U/L (38-126); Anion Gap 11 mmol/L (4-12); Aspartate Amino Transferase 23 U/L (17-59); Bilirubin,Total 0.5 mg/dL (0.2-1.3); Blood Urea Nitrogen 22 mg/dL (9-20); Calcium 9.8 mg/dL (8.4-10.2); Carbon Dioxide 27 mmol/L (22-30); Chloride 100 mmol/L (98-107); Estimated Glomerular Filt Rate > 60; Glucose 141 mg/dL (65-110); Potassium 4.2 mmol/L (3.4-5.0); Sodium 138 mmol/L (137-145); Total Protein 7.2 g/dL (6.3-8.2)
[2024-08-19 20:27] LABS: Thyroid Stimulating Hormone 1.900 uIU/mL (0.465-4.680)
== END 2024-08-19 14:02 | disposition home or self-care (01) ==
PROVIDERS: PCP Internal Medicine; Visit Provider Internal Medicine
DX: E03.9 Hypothyroidism, unspecified (principal); E11.9 Type 2 diabetes mellitus without complications; I10 Essential (primary) hypertension; Z11.59 Encounter for screening for other viral diseases
CPT/HCPCS: 36415; 80053; 82043; 82172; 83036; 84443; 85025; 86803